=== PATIENT | female | born 1975 | race Caucasian/White ===

== ENCOUNTER 2021-09-22 19:08 | Emergency (ER) | payer MEDICAID ==
[~2021-09-22] VITALS: Ht 165.1 cm; Wt 73.0 kg
[2021-09-22 21:16] LABS: CLARITY URINE CLEAR (CLEAR); COLOR URINE YELLOW (YELLOW); KETONES URINE NEGATIVE (NEGATIVE); LEUKOCYTE ESTERASE URINE NEGATIVE (NEGATIVE); NITRITE URINE NEGATIVE (NEGATIVE); OCCULT BLOOD URINE NEGATIVE (NEGATIVE); PH URINE 6.5 (4.5-8.0); PROTEIN URINE NEGATIVE (NEGATIVE); SPECIFIC GRAVITY URINE 1.015 (1.005-1.030)
[2021-09-22 21:31] LABS: *AMPHETAMINES SCREEN URINE NEGATIVE (NEGATIVE); *BARBITURATES SCREEN URINE NEGATIVE (NEGATIVE); *BENZODIAZEPINES SCREEN URINE NEGATIVE (NEGATIVE); *COCAINE SCREEN URINE NEGATIVE (NEGATIVE); CANNABINOID URINE SCREEN NEGATIVE (NEGATIVE); METHADONE URINE SCREEN NEGATIVE (NEGATIVE); OPIATES URINE SCREEN NEGATIVE (NEGATIVE); PHENCYCLIDINE URINE SCREEN NEGATIVE (NEGATIVE)
[2021-09-22 22:00] VITALS: BP 120/74
[2021-09-22 22:14] LABS: BASOPHILS % 1.3 % (0.0-2.0); HEMATOCRIT. 28.9 % (36.0-48.0); HEMOGLOBIN. 9.2 g/dL (12.0-16.0); LYMPHOCYTES % 24.6 % (20.0-50.0); MEAN CORPUSCULAR HEMOGLOBIN 25.8 pg (28.0-32.0); MEAN CORPUSCULAR VOLUME 80.6 fL (81.0-99.0); MEAN PLATELET VOLUME 7.1 fl (7.4-10.4); MONOCYTES % 5.6 % (2.0-8.0); NEUTROPHILS % 68.5 % (40.0-76.0); PLATELET 582 x1000/uL (130-400); RED BLOOD CELL COUNT 3.59 mill/uL (4.2-5.4); RED CELL DISTRIBUTION WIDTH 20.7 % (11.6-14.6)
[2021-09-22 22:18] LABS: CHLORIDE 110 mEq/L (98-107)
[2021-09-22 22:22] LABS: HCG SCREEN NEGATIVE
[2021-09-22 22:27] LABS: ETHANOL BLOOD 288 mg/dL
== END 2021-09-23 01:00 | disposition home or self-care (01) ==
LOC: EDBD 19:08 → ER 19:08
DX: F10.229 Alcohol dependence with intoxication, unspecified (principal); R45.1 Restlessness and agitation; M25.511 Pain in right shoulder; F11.90 Opioid use, unspecified, uncomplicated; Y90.8 Blood alcohol level of 240 mg/100 ml or more; E87.6 Hypokalemia; D64.9 Anemia, unspecified; Z87.81 Personal history of (healed) traumatic fracture
CPT/HCPCS: 36415; 73030; 80053; 80305; 80320; 81003; 81025; 84703; 85025; 93005; 99285; G0480